=== PATIENT | male | born 1955 | race Caucasian/White ===

== ENCOUNTER 2017-08-02 06:34 | Day surgery (SDC) | payer MEDICARE, OTHER ==
[2017-08-02] MEDS ORDERED: Sodium Chloride 0.9% 10 ML Syringe FLUSH PRN (06:45)
[2017-08-02] MEDS: Lactated Ringers 1,000 ML IV SCH (07:40)
[2017-08-02] MEDS ORDERED: Propofol 200 MG/20 ML SDV IV ONE (08:00)
[2017-08-02] MEDS ORDERED: Midazolam 1 MG/ML 2 ML SDV IV ONE (08:00)
[2017-08-02] MEDS ORDERED: fentaNYL 100 MCG/2 ML SDV IV ONE (08:00)
--- NOTE | 2017-08-02 08:25 | PCM.OPNOTE ---
- General Post-Op/Procedure Note Date of Surgery/Procedure: 08/02/17 Operative Procedure(s): c scope Findings: normal exam Pre Op Diagnosis: hx of colon polyps Post-Op Diagnosis: normal exam Anesthesia Technique: MAC Primary Surgeon: Brody Bill Anesthesia Provider: Erasmo Samson Pathology: none Complications: None Condition: Good Free Text/Narrative:: see dictation
--- NOTE | 2017-08-02 11:21 | PROC ---
DATE OF PROCEDURE: 08/02/2017 PROCEDURE PERFORMED: Colonoscopy. PREOPERATIVE DIAGNOSIS: Personal history of colon polyps. POSTOPERATIVE DIAGNOSIS: Normal scope. INDICATIONS FOR PROCEDURE: This is a 61-year-old white male who presents for a followup colonoscopy. Last endoscopy revealed some colon polyps. He was offered and accepted same. DESCRIPTION OF OPERATION: After an excellent IV sedation was administered, digital rectal exam was performed. No marked abnormality was noted. Flexible colonoscope was inserted and advanced without difficulty to the cecum. The prep was excellent. The following findings were noted: Ascending colon, unremarkable. Transverse colon, unremarkable. Descending colon, unremarkable. Sigmoid and rectum unremarkable. Colon was deflated as the scope was removed. The patient tolerated the procedure well, and was taken to the recovery in good condition. Repeat scope in 10 years. /[id number] /MODL
== END 2017-08-02 09:18 | disposition home or self-care (01) ==
LOC: FB.SDS 06:34
PROVIDERS: ATTEND Surgery
DX: Z12.11 Encounter for screening for malignant neoplasm of colon (principal); I10 Essential (primary) hypertension; E11.42 Type 2 diabetes mellitus with diabetic polyneuropathy; E03.9 Hypothyroidism, unspecified; E78.2 Mixed hyperlipidemia; F17.220 Nicotine dependence, chewing tobacco, uncomplicated; Z86.010 Personal history of colon polyps; Z79.4 Long term (current) use of insulin; Z79.82 Long term (current) use of aspirin; Z79.899 Other long term (current) drug therapy
CPT/HCPCS: 00812-QZ; 82962; J2250; J2704; J3010; J7120

== ENCOUNTER 2019-09-09 19:57 | Emergency (ER) | payer MEDICARE, OTHER ==
[2019-09-09] MEDS ORDERED: Diphtheria,Pertussis(Acell),Tetanus Vaccine 0.5 ML SDV IM ONE (20:09)
[2019-09-09] MEDS ORDERED: cefTRIAXone 1 GM Vial IM ONE (20:12)
--- NOTE | 2019-09-09 20:18 | EDM.PDOC ---
ED HPI GENERAL MEDICAL PROBLEM - General Chief Complaint: Skin Complaint Stated Complaint: FISH HOOK IN HAND Time Seen by Provider: 09/09/19 20:00 Source of Information: Reports: Patient History Limitations: Reports: No Limitations - History of Present Illness INITIAL COMMENTS - FREE TEXT/NARRATIVE: Got fish hook in the right 5th finger this am Was able to remove it though it was in deep this pm noted swelling , pain and bruising in the are of the injury no fever or chills noted Onset: Today Onset Date: 09/09/19 Duration: Hour(s): (10), Getting Worse Location: Reports: Upper Extremity, Right Quality: Reports: Ache, Dull Severity: Mild Improves with: Reports: None Associated Symptoms: Reports: No Other Symptoms - Related Data Allergies Allergy/AdvReac Type Severity Reaction Status Date / Time No Known Allergies Allergy Verified 08/02/17 07:26 Home Meds: Home Meds Aspirin [Asperdrink] 81 mg PO DAILY 04/13/13 [History] Lisinopril [Zestril] 10 mg PO BEDTIME 04/13/13 [History] lisinopriL [Prinivil] 20 mg PO DAILY 04/13/13 [History] Insulin Aspart [Novolog Flexpen] 7 unit SQ TID 07/30/17 [History] Insulin Glarg,Human.Rec.Analog [Lantus Solostar] 20 unit SUBCUT DAILY 07/30/17 [ History] Levothyroxine 150 mcg PO DAILY 07/30/17 [History] Simvastatin [Zocor] 40 mg PO BEDTIME 07/30/17 [History] Sulfamethoxazole/Trimethoprim [Bactrim Ds Tablet] 1 each PO BID #20 tablet 09/08 [Rx] Past Medical History HEENT History: Reports: Cataract Cardiovascular History: Reports: High Cholesterol, Hypertension Respiratory History: Reports: None Gastrointestinal History: Reports: Colon Polyp Genitourinary History: Reports: None [employer] History: Reports: None Musculoskeletal History: Reports: None Neurological History: Reports: Neuropathy, Diabetic Psychiatric History: Reports: None Endocrine/Metabolic History: Reports: Diabetes, Type I, Hypothyroidism Hematologic History: Reports: None Immunologic History: Reports: None Oncologic (Cancer) History: Reports: None Dermatologic History: Reports: Other (See Below) Other Dermatologic History: ACTINIC KERATOSIS - Past Surgical History GI Surgical History: Reports: Colonoscopy Social & Family History - Caffeine Use Caffeine Use: Reports: Coffee ED ROS GENERAL - Review of Systems Review Of Systems: Comprehensive ROS is negative, except as noted in HPI. ED EXAM, SKIN/RASH Exam: See Below Exam Limited By: No Limitations General Appearance: Alert, WD/WN, No Apparent Distress Eye Exam: Bilateral Eye: EOMI, PERRL Ears: Normal External Exam Nose: Normal Inspection Throat/Mouth: Normal Inspection Neck: Supple, Non-Tender Extremities: Increased Warmth, Mottled, Redness, Other (in the right 5th distal finger) Neurological: Alert, Oriented Skin: Other (puncture wound in the right 5th finger) Location, Skin: Upper Extremity, Right Associated features: Warmth, Tenderness, Swelling, Induration, Inflammation Lymphatic: No Adenopathy Course - Vital Signs Last Recorded V/S: Last Vital Signs Temp 36.4 C 09/09/19 21:00 Pulse 75 09/09/19 21:00 Resp 18 09/09/19 21:00 BP 120/61 09/09/19 21:00 Pulse Ox 97 09/09/19 21:00 - Orders/Labs/Meds Orders: Active Orders 24 hr Category Date Time Status Vaccines to be Administered [RC] PER UNIT ROUTINE Care 09/09/19 20:10 Active Meds: Medications Discontinued Medications Generic Name Dose Route Start Last Admin Trade Name Oliva PRN Reason Stop Dose Admin Ceftriaxone Sodium 1 gm 09/09/19 20:12 09/09/19 20:56 Rocephin IM 09/09/19 20:13 1 gm ONETIME ONE Administration Diphtheria/Tetanus/Acell Pertussis 0.5 ml 09/09/19 20:09 09/09/19 20:49 Adacel IM 09/09/19 20:10 0.5 ml .ONCE ONE Administration - Re-Assessments/Exams Free Text/Narrative Re-Assessment/Exam: 09/09/19 20:19 pt given both tetanus and rocephin Departure - Departure Time of Disposition: 22:10 Disposition: Home, Self-Care 01 Clinical Impression: Foreign body of finger of right hand, superficial, infected, Cellulitis of finger of right hand, Cellulitis - Discharge Information *PRESCRIPTION DRUG MONITORING PROGRAM REVIEWED*: Not Applicable *COPY OF PRESCRIPTION DRUG MONITORING REPORT IN PATIENT PERCY: Not Applicable Prescriptions: Sulfamethoxazole/Trimethoprim [Bactrim Ds Tablet] 1 each PO BID #20 tablet Instructions: Cellulitis, Adult, [id number] Referrals: Curt Baron MD [Primary Care Provider] - Forms: ED Department Discharge Additional Instructions: 1) Soak hand in epsom salt once daily till no longer has pain 2) keep wound open : NO BANDAID 3) Monitor for any signs of infection ( redness , swelling pain , pus discharge ) and return for evaluation immediately or see your doctor 4) Call with any concerns Sepsis Event Note - Focused Exam Vital Signs: Vital Signs Temp Pulse Resp BP Pulse Ox 09/09/19 21:00 36.4 C 75 18 120/61 97 09/09/19 20:00 36.4 C 88 18 157/59 H 98 Date Exam was Performed: 09/10/19 Time Exam was Performed: 01:50 - My Orders Last 24 Hours: My Active Orders 09/09/19 20:10 Vaccines to be Administered [RC] PER UNIT ROUTINE - Assessment/Plan Last 24 Hours: My Active Orders 09/09/19 20:10 Vaccines to be Administered [RC] PER UNIT ROUTINE
== END 2019-09-09 21:20 | disposition home or self-care (01) ==
LOC: FB.ED 19:57
DX: S61.246A Puncture wound with foreign body of right little finger without damage to nail, initial encounter (principal); L03.011 Cellulitis of right finger; E78.00 Pure hypercholesterolemia, unspecified; I10 Essential (primary) hypertension; E03.9 Hypothyroidism, unspecified; E10.40 Type 1 diabetes mellitus with diabetic neuropathy, unspecified; Z79.82 Long term (current) use of aspirin; Z79.4 Long term (current) use of insulin; Z23 Encounter for immunization; Z79.899 Other long term (current) drug therapy; W45.8XXA Other foreign body or object entering through skin, initial encounter
CPT/HCPCS: 90471; 90715; 96372; 99283; J0696

== ENCOUNTER 2022-08-31 11:59 | Emergency (ER) | payer MEDICARE, OTHER ==
[2022-08-31] MEDS ORDERED: Ondansetron 4 MG/2 ML SDV IVPUSH ONE (12:15)
[2022-08-31] MEDS ORDERED: Sodium Chloride 0.9% 10 ML Syringe FLUSH PRN (12:15)
[2022-08-31] MEDS ORDERED: Sodium Chloride 0.9% 1,000 ML IV ONE ×2 (12:15→14:12)
[2022-08-31 12:47] LABS: BASOPHILS PERCENT AUTO 0.2 % (0.3-3.8); BLOOD UREA NITROGEN,BUN 28 mg/dL (7-18); CALCIUM 9.2 mg/dL (8.6-10.2); CARBON DIOXIDE,CO2 25 mmol/L (21-32); CHLORIDE,CL 98 mmol/L (100-110); CREATININE 1.4 mg/dL (0.70-1.30); EST CRCL DRUG DOSING (CG) 56.97 mL/min; ESTIMATED GFR 55 mL/min (>60); GLUCOSE RANDOM 218 mg/dL (80-116); HEMOGLOBIN 11.3 g/dL (12.9-17.7); LYMPHOCYTES ABSOLUTE AUTO 0.5 x10-3/uL (0.5-4.5); LYMPHOCYTES PERCENT AUTO 3.5 % (15.8-45.3); MEAN CORPUSCULAR HEMOGLOBIN 30.4 pg (27.0-33.3); MEAN CORPUSCULAR HGB CONC 33.2 g/dL (28.7-35.3); MEAN CORPUSCULAR VOLUME 91.4 fL (80.8-98.7); MEAN PLATELET VOLUME 8.5 fL (6.7-11.0); MONOCYTES ABSOLUTE AUTO 0.7 x10-3/uL (0.0-1.2); MONOCYTES PERCENT AUTO 5.1 % (5.5-15.2); NEUTROPHILS ABSOLUTE AUTO 12.9 x10-3/uL (1.7-6.9); NEUTROPHILS PERCENT AUTO 91.2 % (40.3-71.8); PLATELET COUNT,PLT 232 x10(3)uL (117-477); POTASSIUM,K 4.4 mmol/L (3.5-5.3); RED BLOOD CELL COUNT 3.73 x10(6)uL (3.90-5.90); RED CELL DISTRIBUTION WIDTH 13.2 % (12.4-15.0); SODIUM,NA 134 mmol/L (135-145); WHITE BLOOD CELL COUNT,WBC 14.1 x10-3/uL (3.2-10.1)
[2022-08-31 12:56] LABS: BASE EXCESS VENOUS,POC -2 mmol/L (-2 - 3+); PCO2 VENOUS,POC 34 mmHg (41-51); PH VENOUS,POC 7.42 pH Units (7.32-7.43)
[2022-08-31 12:58] LABS: A/G RATIO 0.7; ALANINE AMINOTRANSFERASE,ALT 41 U/L (12-36); ALBUMIN 2.8 g/dL (3.2-4.6); ALKALINE PHOSPHATASE 96 IU/L (56-112); MAGNESIUM 1.6 mg/dL (1.8-2.5)
[2022-08-31] MEDS ORDERED: Piperacillin/Tazobactam 3.375 GM in Sodium Chloride 0.9% 50 ML IV SCH (13:00)
[2022-08-31 13:02] LABS: ASPARTATE AMNIOTRANSFERASE,AST 212 IU/L (5-25)
[2022-08-31 13:21] LABS: INFLUENZA A NAA NEGATIVE (NEGATIVE); INFLUENZA B NAA NEGATIVE (NEGATIVE)
[2022-08-31 13:21] LABS: BILIRUBIN,URINE SMALL (NEGATIVE); GLUCOSE,URINE >1000 mg/dL (NORMAL); KETONES,URINE 15 mg/dL (NEGATIVE); LEUKOCYTE ESTERASE,URINE NEGATIVE (NEGATIVE); NITRITE,URINE NEGATIVE (NEGATIVE); OCCULT BLOOD,URINE MODERATE (NEGATIVE); PROTEIN,URINE TRACE mg/dL (NEGATIVE); UROBILINOGEN,URINE NORMAL (NEGATIVE)
[2022-08-31 13:22] LABS: CORONAVIRUS COVID-19 NAA NEGATIVE (NEGATIVE)
[2022-08-31 13:27] LABS: APPEARANCE,URINE SLIGHTLY CLOUDY (CLEAR); COLOR,URINE YELLOW (YELLOW); RBC,URINE 0-5 (0-5); SQUAMOUS EPITHELIAL CELLS,UR RARE (NS,R,O); WBC,URINE 0-5 (0-5)
[2022-08-31 13:28] LABS: AMORPHOUS SEDIMENT,URINE MANY; BACTERIA,URINE MODERATE (NS)
[2022-08-31] MEDS ORDERED: VANCOmycin 1.75 GM/350 ML 350 ML IV ONE (13:30)
[2022-08-31] MEDS ORDERED: Sodium Chloride 0.9% 1,000 ML IV SCH (14:15)
== END 2022-08-31 15:50 ==
LOC: FB.ED 11:59
DX: L03.116 Cellulitis of left lower limb (principal); R65.10 Systemic inflammatory response syndrome (SIRS) of non-infectious origin without acute organ dysfunction; L04.3 Acute lymphadenitis of lower limb; E10.621 Type 1 diabetes mellitus with foot ulcer; L97.521 Non-pressure chronic ulcer of other part of left foot limited to breakdown of skin; E78.00 Pure hypercholesterolemia, unspecified; I10 Essential (primary) hypertension; E03.9 Hypothyroidism, unspecified; Z79.82 Long term (current) use of aspirin; Z79.4 Long term (current) use of insulin; Z79.899 Other long term (current) drug therapy; Z87.891 Personal history of nicotine dependence; Z20.822 Contact with and (suspected) exposure to COVID-19
CPT/HCPCS: 0240U; 36415; 73590; 73630; 80053; 81001; 82947; 83605; 83735; 85025; 86140; 87040; 87077; 93005; 96361; 96365; 96366; 96367; 96375; 99285; J2405; J2543; J3370; J3490; J7030; 87186

== ENCOUNTER 2022-09-08 08:17 | Inpatient (IN) | payer MEDICARE, OTHER ==
[2022-09-11] MEDS ORDERED: oxyCODONE 5 MG Tab PO PRN (12:47)
[2022-09-11] MEDS ORDERED: Glucagon,Human Recombinant 1 MG Vial IM PRN (12:47)
[2022-09-11] MEDS ORDERED: Sennosides/Docusate Sodium 50-8.6 MG Tab PO PRN (12:47)
[2022-09-11] MEDS ORDERED: Scopolamine 1.5 MG Transdermal Patch TOP PRN (12:47)
[2022-09-11] MEDS ORDERED: Ondansetron 4 MG Tab.DIS PO PRN (12:47)
[2022-09-11] MEDS ORDERED: 50% Dextrose in Water 50 ML Syringe IVPUSH PRN (12:47)
[2022-09-11] MEDS ORDERED: ceFAZolin 2 GM Vial IVPUSH SCH (13:00)
[2022-09-11] MEDS ORDERED: Insulin Lispro 100 Unit/ML 3 ML KwikPen SUBCUT ONE (13:11)
[2022-09-11] MEDS: Insulin Lispro 100 Unit/ML 3 ML KwikPen SUBCUT SCH ×2 (13:19→17:58)
[2022-09-11] MEDS: ceFAZolin 2 GM Vial IVPUSH SCH ×2 (13:23→21:58)
[2022-09-11] MEDS: Furosemide 40 MG Tab PO SCH (14:48)
[2022-09-11] MEDS ORDERED: Insulin Glargine,Human Rec. Analog 100 Units/ML 3 ML Pen SUBCUT ONE (21:56)
[2022-09-11] MEDS: Insulin Glargine,Human Rec. Analog 100 Units/ML 3 ML Pen SUBCUT SCH (21:57)
[2022-09-11] MEDS: Simvastatin 40 MG Tab PO SCH (21:58)
[2022-09-11] MEDS: Sodium Chloride 0.9% 10 ML Syringe FLUSH PRN ×2 (21:59→22:06)
[2022-09-12] MEDS: ceFAZolin 2 GM Vial IVPUSH SCH ×3 (05:12→21:17)
[2022-09-12] MEDS: Sodium Chloride 0.9% 10 ML Syringe FLUSH PRN ×3 (05:13→21:18)
[2022-09-12] MEDS: Levothyroxine 150 MCG Tab PO SCH (05:17)
[2022-09-12] MEDS: Furosemide 40 MG Tab PO SCH ×2 (08:13→15:47)
[2022-09-12] MEDS: Ferrous Sulfate 325 MG Tab PO SCH (08:13)
[2022-09-12] MEDS: Saccharomyces Boulardii (Probiotic) 250 MG Cap PO SCH (08:13)
[2022-09-12] MEDS: Clopidogrel 75 MG Tab PO SCH (08:14)
[2022-09-12] MEDS: amLODIPine 5 MG Tab PO SCH (08:14)
[2022-09-12] MEDS: Aspirin 81 MG Tab.EC PO SCH (08:14)
[2022-09-12] MEDS: Insulin Lispro 100 Unit/ML 3 ML KwikPen SUBCUT SCH ×3 (08:15→17:26)
[2022-09-12] MEDS: Insulin Glargine,Human Rec. Analog 100 Units/ML 3 ML Pen SUBCUT SCH (21:17)
[2022-09-12] MEDS: Simvastatin 40 MG Tab PO SCH (21:18)
[2022-09-13] MEDS: Levothyroxine 150 MCG Tab PO SCH (05:56)
[2022-09-13] MEDS: ceFAZolin 2 GM Vial IVPUSH SCH ×3 (05:56→20:48)
[2022-09-13] MEDS: Sodium Chloride 0.9% 10 ML Syringe FLUSH PRN ×4 (05:57→21:16)
[2022-09-13] MEDS: Insulin Lispro 100 Unit/ML 3 ML KwikPen SUBCUT SCH ×3 (07:49→17:25)
[2022-09-13] MEDS: Furosemide 40 MG Tab PO SCH ×2 (07:49→13:15)
[2022-09-13] MEDS: Clopidogrel 75 MG Tab PO SCH (08:00)
[2022-09-13] MEDS: Aspirin 81 MG Tab.EC PO SCH (08:00)
[2022-09-13] MEDS: Saccharomyces Boulardii (Probiotic) 250 MG Cap PO SCH (08:00)
[2022-09-13] MEDS: amLODIPine 5 MG Tab PO SCH (10:04)
[2022-09-13] MEDS: Hydrochlorothiazide/Lisinopril 12.5-10 MG Tab PO SCH (10:40)
[2022-09-13] MEDS ORDERED: Prochlorperazine 10 MG/2 ML SDV IVPUSH ONE (14:11)
[2022-09-13 14:32] LABS: BASOPHILS ABSOLUTE AUTO 0.1 x10-3/uL (0.0-0.3); BASOPHILS PERCENT AUTO 0.6 % (0.3-3.8); EOSINOPHILS ABSOLUTE AUTO 0.1 x10-3/uL (0.0-0.6); HEMATOCRIT 31.9 % (38.3-50.1); HEMOGLOBIN 10.5 g/dL (12.9-17.7); LYMPHOCYTES ABSOLUTE AUTO 1.5 x10-3/uL (0.5-4.5); MEAN CORPUSCULAR HEMOGLOBIN 30.6 pg (27.0-33.3); MEAN CORPUSCULAR HGB CONC 32.9 g/dL (28.7-35.3); MEAN PLATELET VOLUME 7.5 fL (6.7-11.0); MONOCYTES ABSOLUTE AUTO 0.6 x10-3/uL (0.0-1.2); MONOCYTES PERCENT AUTO 6.2 % (5.5-15.2); NEUTROPHILS ABSOLUTE AUTO 7.1 x10-3/uL (1.7-6.9); NEUTROPHILS PERCENT AUTO 76.2 % (40.3-71.8); PLATELET COUNT,PLT 377 x10(3)uL (117-477); RED BLOOD CELL COUNT 3.43 x10(6)uL (3.90-5.90); RED CELL DISTRIBUTION WIDTH 15.8 % (12.4-15.0); WHITE BLOOD CELL COUNT,WBC 9.3 x10-3/uL (3.2-10.1)
[2022-09-13 14:41] LABS: A/G RATIO 0.6; ALANINE AMINOTRANSFERASE,ALT 16 U/L (12-36); ALBUMIN 2.3 g/dL (3.2-4.6); ALKALINE PHOSPHATASE 92 IU/L (56-112); ASPARTATE AMNIOTRANSFERASE,AST 25 IU/L (5-25); BILIRUBIN TOTAL 0.5 mg/dL (0.1-1.3); BLOOD UREA NITROGEN,BUN 10 mg/dL (7-18); BUN/CREATININE RATIO 7.7 (9-20); CALCIUM 8.5 mg/dL (8.6-10.2); CARBON DIOXIDE,CO2 31 mmol/L (21-32); CHLORIDE,CL 103 mmol/L (100-110); CREATININE 1.3 mg/dL (0.70-1.30); EST CRCL DRUG DOSING (CG) 59.53 mL/min; ESTIMATED GFR 61 mL/min (>60); GLUCOSE RANDOM 210 mg/dL (80-116); POTASSIUM,K 3.4 mmol/L (3.5-5.3); PROTEIN TOTAL,TP 6.1 g/dL (6.0-8.0); SODIUM,NA 141 mmol/L (135-145)
[2022-09-13] MEDS ORDERED: Prochlorperazine 10 MG/2 ML SDV IVPUSH PRN (14:57)
[2022-09-13] MEDS ORDERED: Insulin Lispro 100 Unit/ML 3 ML KwikPen SUBCUT SCH (17:00)
[2022-09-13] MEDS ORDERED: Pantoprazole 40 MG Vial IVPUSH ONE (18:31)
[2022-09-13] MEDS: Insulin Glargine,Human Rec. Analog 100 Units/ML 3 ML Pen SUBCUT SCH (20:47)
[2022-09-13] MEDS: Simvastatin 40 MG Tab PO SCH (20:48)
[2022-09-14] MEDS: Pantoprazole 40 MG Tab.CR PO SCH (05:54)
[2022-09-14] MEDS: ceFAZolin 2 GM Vial IVPUSH SCH ×3 (05:54→21:00)
[2022-09-14] MEDS: Levothyroxine 150 MCG Tab PO SCH (05:54)
[2022-09-14] MEDS: Sodium Chloride 0.9% 10 ML Syringe FLUSH PRN ×4 (05:55→21:09)
[2022-09-14] MEDS: Scopolamine 1.5 MG Transdermal Patch TOP SCH (09:50)
[2022-09-14] MEDS: Insulin Lispro 100 Unit/ML 3 ML KwikPen SUBCUT SCH ×3 (09:54→17:30)
[2022-09-14] MEDS: Furosemide 40 MG Tab PO SCH ×2 (09:55→13:41)
[2022-09-14] MEDS: Ferrous Sulfate 325 MG Tab PO SCH (09:55)
[2022-09-14] MEDS: amLODIPine 5 MG Tab PO SCH (09:56)
[2022-09-14] MEDS: Saccharomyces Boulardii (Probiotic) 250 MG Cap PO SCH (09:56)
[2022-09-14] MEDS: Aspirin 81 MG Tab.EC PO SCH (09:56)
[2022-09-14] MEDS: Hydrochlorothiazide/Lisinopril 12.5-10 MG Tab PO SCH (09:58)
[2022-09-14] MEDS: Clopidogrel 75 MG Tab PO SCH (09:59)
[2022-09-14] MEDS: Insulin Glargine,Human Rec. Analog 100 Units/ML 3 ML Pen SUBCUT SCH (20:54)
[2022-09-14] MEDS: Simvastatin 40 MG Tab PO SCH (21:13)
[2022-09-15] MEDS: Sodium Chloride 0.9% 10 ML Syringe FLUSH PRN ×7 (05:32→16:47)
[2022-09-15] MEDS: ceFAZolin 2 GM Vial IVPUSH SCH ×3 (05:33→21:22)
[2022-09-15] MEDS: Levothyroxine 150 MCG Tab PO SCH (05:43)
[2022-09-15] MEDS: Pantoprazole 40 MG Tab.CR PO SCH (05:43)
[2022-09-15 06:49] LABS: BLOOD UREA NITROGEN,BUN 12 mg/dL (7-18); BUN/CREATININE RATIO 10.9 (9-20); CALCIUM 8.5 mg/dL (8.6-10.2); CARBON DIOXIDE,CO2 33 mmol/L (21-32); CHLORIDE,CL 104 mmol/L (100-110); CREATININE 1.1 mg/dL (0.70-1.30); EST CRCL DRUG DOSING (CG) 70.36 mL/min; ESTIMATED GFR 74 mL/min (>60); GLUCOSE RANDOM 96 mg/dL (80-116); SODIUM,NA 143 mmol/L (135-145)
[2022-09-15] MEDS: Insulin Lispro 100 Unit/ML 3 ML KwikPen SUBCUT SCH ×3 (08:20→17:56)
[2022-09-15] MEDS: Clopidogrel 75 MG Tab PO SCH (08:30)
[2022-09-15] MEDS: amLODIPine 5 MG Tab PO SCH (08:30)
[2022-09-15] MEDS: Aspirin 81 MG Tab.EC PO SCH (08:31)
[2022-09-15] MEDS: Furosemide 40 MG Tab PO SCH (08:31)
[2022-09-15] MEDS: Saccharomyces Boulardii (Probiotic) 250 MG Cap PO SCH (08:35)
[2022-09-15] MEDS ORDERED: Potassium Chloride 20 MEQ Tab.ER PO ONE ×2 (10:12→16:00)
[2022-09-15] MEDS: Hydrochlorothiazide/Lisinopril 12.5-10 MG Tab PO SCH (10:20)
[2022-09-15] MEDS ORDERED: Magnesium Sulfate/Water 2 GM in Premix Bag 1 BAG IV ONE (10:22)
[2022-09-15 13:50] LABS: BASOPHILS ABSOLUTE AUTO 0.1 x10-3/uL (0.0-0.3); BASOPHILS PERCENT AUTO 0.8 % (0.3-3.8); EOSINOPHILS ABSOLUTE AUTO 0.2 x10-3/uL (0.0-0.6); EOSINOPHILS PERCENT AUTO 2.3 % (0.1-6.8); HEMATOCRIT 31.8 % (38.3-50.1); HEMOGLOBIN 10.5 g/dL (12.9-17.7); LYMPHOCYTES ABSOLUTE AUTO 1.5 x10-3/uL (0.5-4.5); MEAN PLATELET VOLUME 8.3 fL (6.7-11.0); MONOCYTES ABSOLUTE AUTO 0.8 x10-3/uL (0.0-1.2); MONOCYTES PERCENT AUTO 9.3 % (5.5-15.2); NEUTROPHILS ABSOLUTE AUTO 5.5 x10-3/uL (1.7-6.9); NEUTROPHILS PERCENT AUTO 68.6 % (40.3-71.8); PLATELET COUNT,PLT 341 x10(3)uL (117-477); RED BLOOD CELL COUNT 3.39 x10(6)uL (3.90-5.90); RED CELL DISTRIBUTION WIDTH 17.4 % (12.4-15.0); WHITE BLOOD CELL COUNT,WBC 8.1 x10-3/uL (3.2-10.1)
[2022-09-15 13:57] LABS: ASPARTATE AMNIOTRANSFERASE,AST 20 IU/L (5-25)
[2022-09-15 14:15] LABS: SEDIMENTATION RATE MANUAL 15 mm/hr (0-15)
[2022-09-15] MEDS: Simvastatin 40 MG Tab PO SCH (21:23)
[2022-09-15] MEDS: Insulin Glargine,Human Rec. Analog 100 Units/ML 3 ML Pen SUBCUT SCH (21:31)
[2022-09-16] MEDS: ceFAZolin 2 GM Vial IVPUSH SCH ×3 (05:44→21:20)
[2022-09-16 05:48] LABS: BASOPHILS ABSOLUTE AUTO 0.1 x10-3/uL (0.0-0.3); BASOPHILS PERCENT AUTO 0.7 % (0.3-3.8); EOSINOPHILS ABSOLUTE AUTO 0.2 x10-3/uL (0.0-0.6); EOSINOPHILS PERCENT AUTO 2.9 % (0.1-6.8); HEMATOCRIT 31.1 % (38.3-50.1); HEMOGLOBIN 10.3 g/dL (12.9-17.7); LYMPHOCYTES ABSOLUTE AUTO 1.5 x10-3/uL (0.5-4.5); LYMPHOCYTES PERCENT AUTO 22.6 % (15.8-45.3); MEAN CORPUSCULAR HEMOGLOBIN 30.9 pg (27.0-33.3); MEAN CORPUSCULAR HGB CONC 33.1 g/dL (28.7-35.3); MEAN CORPUSCULAR VOLUME 93.2 fL (80.8-98.7); MONOCYTES ABSOLUTE AUTO 0.7 x10-3/uL (0.0-1.2); MONOCYTES PERCENT AUTO 10.3 % (5.5-15.2); NEUTROPHILS ABSOLUTE AUTO 4.3 x10-3/uL (1.7-6.9); NEUTROPHILS PERCENT AUTO 63.5 % (40.3-71.8); PLATELET COUNT,PLT 324 x10(3)uL (117-477); RED BLOOD CELL COUNT 3.34 x10(6)uL (3.90-5.90); RED CELL DISTRIBUTION WIDTH 17.5 % (12.4-15.0); WHITE BLOOD CELL COUNT,WBC 6.8 x10-3/uL (3.2-10.1)
[2022-09-16] MEDS: Levothyroxine 150 MCG Tab PO SCH (05:49)
[2022-09-16] MEDS: Pantoprazole 40 MG Tab.CR PO SCH (05:49)
[2022-09-16 05:57] LABS: A/G RATIO 0.6; ALANINE AMINOTRANSFERASE,ALT 6 U/L (12-36); ALBUMIN 2.1 g/dL (3.2-4.6); ALKALINE PHOSPHATASE 76 IU/L (56-112); ASPARTATE AMNIOTRANSFERASE,AST 19 IU/L (5-25); BILIRUBIN TOTAL 0.5 mg/dL (0.1-1.3); BLOOD UREA NITROGEN,BUN 19 mg/dL (7-18); CALCIUM 8.3 mg/dL (8.6-10.2); CARBON DIOXIDE,CO2 35 mmol/L (21-32); CHLORIDE,CL 103 mmol/L (100-110); EST CRCL DRUG DOSING (CG) 77.39 mL/min; ESTIMATED GFR 83 mL/min (>60); GLUCOSE RANDOM 187 mg/dL (80-116); POTASSIUM,K 3.8 mmol/L (3.5-5.3); PROTEIN TOTAL,TP 5.7 g/dL (6.0-8.0); SODIUM,NA 143 mmol/L (135-145)
[2022-09-16] MEDS: Insulin Lispro 100 Unit/ML 3 ML KwikPen SUBCUT SCH ×3 (07:34→17:09)
[2022-09-16] MEDS: Aspirin 81 MG Tab.EC PO SCH (08:45)
[2022-09-16] MEDS: amLODIPine 5 MG Tab PO SCH (08:45)
[2022-09-16] MEDS: Furosemide 40 MG Tab PO SCH (08:45)
[2022-09-16] MEDS: Hydrochlorothiazide/Lisinopril 12.5-10 MG Tab PO SCH (08:45)
[2022-09-16] MEDS: Ferrous Sulfate 325 MG Tab PO SCH (08:45)
[2022-09-16] MEDS: Saccharomyces Boulardii (Probiotic) 250 MG Cap PO SCH (08:45)
[2022-09-16] MEDS: Clopidogrel 75 MG Tab PO SCH (08:46)
[2022-09-16] MEDS: Sodium Chloride 0.9% 10 ML Syringe FLUSH PRN ×3 (12:03→21:29)
[2022-09-16] MEDS: Simvastatin 40 MG Tab PO SCH (21:22)
[2022-09-16] MEDS: Insulin Glargine,Human Rec. Analog 100 Units/ML 3 ML Pen SUBCUT SCH (21:22)
[2022-09-17] MEDS: Pantoprazole 40 MG Tab.CR PO SCH (05:37)
[2022-09-17] MEDS: Sodium Chloride 0.9% 10 ML Syringe FLUSH PRN ×4 (05:37→20:54)
[2022-09-17] MEDS: Levothyroxine 150 MCG Tab PO SCH (05:37)
[2022-09-17] MEDS: ceFAZolin 2 GM Vial IVPUSH SCH ×3 (05:41→20:45)
[2022-09-17] MEDS: Insulin Lispro 100 Unit/ML 3 ML KwikPen SUBCUT SCH ×3 (07:42→17:41)
[2022-09-17] MEDS: Furosemide 40 MG Tab PO SCH (09:32)
[2022-09-17] MEDS: Saccharomyces Boulardii (Probiotic) 250 MG Cap PO SCH (09:35)
[2022-09-17] MEDS: Aspirin 81 MG Tab.EC PO SCH (09:35)
[2022-09-17] MEDS: Hydrochlorothiazide/Lisinopril 12.5-10 MG Tab PO SCH (09:35)
[2022-09-17] MEDS: amLODIPine 5 MG Tab PO SCH (09:36)
[2022-09-17] MEDS: Remove Patch *SCOPOLAMINE TRDERM SCH (09:36)
[2022-09-17] MEDS: Clopidogrel 75 MG Tab PO SCH (09:36)
[2022-09-17] MEDS: Scopolamine 1.5 MG Transdermal Patch TOP SCH (09:37)
[2022-09-17] MEDS ORDERED: Furosemide 20 MG Tab PO PRN (17:02)
[2022-09-17] MEDS: Simvastatin 40 MG Tab PO SCH (20:36)
[2022-09-17] MEDS: Insulin Glargine,Human Rec. Analog 100 Units/ML 3 ML Pen SUBCUT SCH (20:37)
[2022-09-18] MEDS: ceFAZolin 2 GM Vial IVPUSH SCH ×3 (05:35→20:39)
[2022-09-18] MEDS: Sodium Chloride 0.9% 10 ML Syringe FLUSH PRN ×3 (05:40→20:47)
[2022-09-18] MEDS: Levothyroxine 150 MCG Tab PO SCH (05:41)
[2022-09-18] MEDS: Pantoprazole 40 MG Tab.CR PO SCH (05:41)
[2022-09-18] MEDS: Insulin Lispro 100 Unit/ML 3 ML KwikPen SUBCUT SCH ×3 (07:59→17:19)
[2022-09-18] MEDS: Ferrous Sulfate 325 MG Tab PO SCH (08:04)
[2022-09-18] MEDS: Saccharomyces Boulardii (Probiotic) 250 MG Cap PO SCH (08:05)
[2022-09-18] MEDS: Clopidogrel 75 MG Tab PO SCH (08:06)
[2022-09-18] MEDS: Aspirin 81 MG Tab.EC PO SCH (08:06)
[2022-09-18] MEDS: amLODIPine 5 MG Tab PO SCH (08:08)
[2022-09-18] MEDS: Hydrochlorothiazide/Lisinopril 12.5-10 MG Tab PO SCH (08:08)
[2022-09-18] MEDS: Simvastatin 40 MG Tab PO SCH (20:32)
[2022-09-18] MEDS: Insulin Glargine,Human Rec. Analog 100 Units/ML 3 ML Pen SUBCUT SCH (20:34)
[2022-09-19] MEDS: Sodium Chloride 0.9% 10 ML Syringe FLUSH PRN ×4 (05:13→21:45)
[2022-09-19] MEDS: ceFAZolin 2 GM Vial IVPUSH SCH ×3 (05:14→21:40)
[2022-09-19] MEDS: Levothyroxine 150 MCG Tab PO SCH (05:24)
[2022-09-19] MEDS: Pantoprazole 40 MG Tab.CR PO SCH (05:24)
[2022-09-19] MEDS: Insulin Lispro 100 Unit/ML 3 ML KwikPen SUBCUT SCH ×3 (07:31→17:34)
[2022-09-19] MEDS: Aspirin 81 MG Tab.EC PO SCH (08:06)
[2022-09-19] MEDS: Hydrochlorothiazide/Lisinopril 12.5-10 MG Tab PO SCH (08:06)
[2022-09-19] MEDS: Saccharomyces Boulardii (Probiotic) 250 MG Cap PO SCH (08:06)
[2022-09-19] MEDS: amLODIPine 5 MG Tab PO SCH (08:07)
[2022-09-19] MEDS: Clopidogrel 75 MG Tab PO SCH (08:08)
[2022-09-19] MEDS ORDERED: Insulin Lispro 100 Unit/ML 3 ML KwikPen SUBCUT STA ×2 (20:57→22:07)
[2022-09-19] MEDS: Insulin Glargine,Human Rec. Analog 100 Units/ML 3 ML Pen SUBCUT SCH (21:06)
[2022-09-19] MEDS: Simvastatin 40 MG Tab PO SCH (21:13)
[2022-09-19 22:03] LABS: BLOOD UREA NITROGEN,BUN 33 mg/dL (7-18); BUN/CREATININE RATIO 27.5 (9-20); CALCIUM 8.7 mg/dL (8.6-10.2); CARBON DIOXIDE,CO2 29 mmol/L (21-32); CHLORIDE,CL 99 mmol/L (100-110); CREATININE 1.2 mg/dL (0.70-1.30); EST CRCL DRUG DOSING (CG) 64.49 mL/min; ESTIMATED GFR 67 mL/min (>60); POTASSIUM,K 4.8 mmol/L (3.5-5.3); SODIUM,NA 134 mmol/L (135-145)
[2022-09-19 22:04] LABS: GLUCOSE RANDOM 540 mg/dL (80-116)
[2022-09-20] MEDS: Pantoprazole 40 MG Tab.CR PO SCH (05:46)
[2022-09-20] MEDS: Levothyroxine 150 MCG Tab PO SCH (05:46)
[2022-09-20] MEDS: ceFAZolin 2 GM Vial IVPUSH SCH ×3 (05:48→21:21)
[2022-09-20] MEDS: Sodium Chloride 0.9% 10 ML Syringe FLUSH PRN ×3 (05:56→21:29)
[2022-09-20] MEDS: Insulin Lispro 100 Unit/ML 3 ML KwikPen SUBCUT SCH ×3 (07:55→17:12)
[2022-09-20] MEDS: Ferrous Sulfate 325 MG Tab PO SCH (07:59)
[2022-09-20] MEDS: amLODIPine 5 MG Tab PO SCH (08:00)
[2022-09-20] MEDS: Hydrochlorothiazide/Lisinopril 12.5-10 MG Tab PO SCH (08:00)
[2022-09-20] MEDS: Clopidogrel 75 MG Tab PO SCH (08:00)
[2022-09-20] MEDS: Saccharomyces Boulardii (Probiotic) 250 MG Cap PO SCH (08:00)
[2022-09-20] MEDS: Aspirin 81 MG Tab.EC PO SCH (08:00)
[2022-09-20] MEDS: Scopolamine 1.5 MG Transdermal Patch TOP SCH (09:54)
[2022-09-20] MEDS: Remove Patch *SCOPOLAMINE TRDERM SCH (09:55)
[2022-09-20] MEDS: Simvastatin 40 MG Tab PO SCH (21:17)
[2022-09-20] MEDS: Insulin Glargine,Human Rec. Analog 100 Units/ML 3 ML Pen SUBCUT SCH (21:21)
[2022-09-21] MEDS: Sodium Chloride 0.9% 10 ML Syringe FLUSH PRN ×4 (05:43→16:50)
[2022-09-21] MEDS: Levothyroxine 150 MCG Tab PO SCH (05:44)
[2022-09-21] MEDS: Pantoprazole 40 MG Tab.CR PO SCH (05:44)
[2022-09-21] MEDS: ceFAZolin 2 GM Vial IVPUSH SCH ×3 (05:45→20:10)
[2022-09-21 06:07] LABS: BASOPHILS PERCENT AUTO 0.8 % (0.3-3.8); EOSINOPHILS ABSOLUTE AUTO 0.2 x10-3/uL (0.0-0.6); EOSINOPHILS PERCENT AUTO 3.9 % (0.1-6.8); HEMATOCRIT 36.3 % (38.3-50.1); HEMOGLOBIN 12.1 g/dL (12.9-17.7); LYMPHOCYTES ABSOLUTE AUTO 1.8 x10-3/uL (0.5-4.5); LYMPHOCYTES PERCENT AUTO 31.1 % (15.8-45.3); MEAN CORPUSCULAR HEMOGLOBIN 31.8 pg (27.0-33.3); MEAN CORPUSCULAR HGB CONC 33.3 g/dL (28.7-35.3); MEAN CORPUSCULAR VOLUME 95.4 fL (80.8-98.7); MEAN PLATELET VOLUME 8.5 fL (6.7-11.0); MONOCYTES ABSOLUTE AUTO 0.6 x10-3/uL (0.0-1.2); MONOCYTES PERCENT AUTO 11.4 % (5.5-15.2); NEUTROPHILS PERCENT AUTO 52.8 % (40.3-71.8); PLATELET COUNT,PLT 311 x10(3)uL (117-477); RED BLOOD CELL COUNT 3.81 x10(6)uL (3.90-5.90); RED CELL DISTRIBUTION WIDTH 19.9 % (12.4-15.0); WHITE BLOOD CELL COUNT,WBC 5.7 x10-3/uL (3.2-10.1)
[2022-09-21 06:14] LABS: EST CRCL DRUG DOSING (CG) 77.18 mL/min
[2022-09-21 06:26] LABS: SEDIMENTATION RATE MANUAL 25 mm/hr (0-15)
[2022-09-21] MEDS: Insulin Lispro 100 Unit/ML 3 ML KwikPen SUBCUT SCH ×5 (07:37→17:38)
[2022-09-21] MEDS: Saccharomyces Boulardii (Probiotic) 250 MG Cap PO SCH (08:53)
[2022-09-21] MEDS: Hydrochlorothiazide/Lisinopril 12.5-10 MG Tab PO SCH (08:54)
[2022-09-21] MEDS: Aspirin 81 MG Tab.EC PO SCH (08:54)
[2022-09-21] MEDS: Clopidogrel 75 MG Tab PO SCH (08:56)
[2022-09-21] MEDS: amLODIPine 5 MG Tab PO SCH (08:56)
[2022-09-21] MEDS ORDERED: 50% Dextrose in Water 50 ML Syringe IVPUSH PRN (10:06)
[2022-09-21] MEDS ORDERED: Glucagon,Human Recombinant 1 MG Vial IM PRN (10:06)
[2022-09-21] MEDS: Simvastatin 40 MG Tab PO SCH (20:07)
[2022-09-21] MEDS: Insulin Glargine,Human Rec. Analog 100 Units/ML 3 ML Pen SUBCUT SCH (20:46)
[2022-09-22] MEDS: ceFAZolin 2 GM Vial IVPUSH SCH ×3 (05:42→20:42)
[2022-09-22] MEDS: Levothyroxine 150 MCG Tab PO SCH (05:43)
[2022-09-22] MEDS: Pantoprazole 40 MG Tab.CR PO SCH (05:43)
[2022-09-22] MEDS: Insulin Lispro 100 Unit/ML 3 ML KwikPen SUBCUT SCH ×6 (07:47→17:25)
[2022-09-22] MEDS: Ferrous Sulfate 325 MG Tab PO SCH (07:59)
[2022-09-22] MEDS: Hydrochlorothiazide/Lisinopril 12.5-10 MG Tab PO SCH (08:00)
[2022-09-22] MEDS: Clopidogrel 75 MG Tab PO SCH (08:00)
[2022-09-22] MEDS: Saccharomyces Boulardii (Probiotic) 250 MG Cap PO SCH (08:00)
[2022-09-22] MEDS: Aspirin 81 MG Tab.EC PO SCH (08:00)
[2022-09-22] MEDS: amLODIPine 5 MG Tab PO SCH (08:00)
[2022-09-22] MEDS: Sodium Chloride 0.9% 10 ML Syringe FLUSH PRN ×5 (13:05→20:48)
[2022-09-22] MEDS ORDERED: Insulin Lispro 100 Unit/ML 3 ML KwikPen SUBCUT ONE (17:26)
[2022-09-22] MEDS: Insulin Glargine,Human Rec. Analog 100 Units/ML 3 ML Pen SUBCUT SCH (20:36)
[2022-09-22] MEDS: Simvastatin 40 MG Tab PO SCH (20:39)
[2022-09-23] MEDS: Pantoprazole 40 MG Tab.CR PO SCH (05:50)
[2022-09-23] MEDS: ceFAZolin 2 GM Vial IVPUSH SCH ×3 (05:53→21:06)
[2022-09-23] MEDS: Sodium Chloride 0.9% 10 ML Syringe FLUSH PRN ×3 (05:59→21:15)
[2022-09-23] MEDS: Insulin Lispro 100 Unit/ML 3 ML KwikPen SUBCUT SCH ×6 (07:45→17:29)
[2022-09-23] MEDS: Levothyroxine 150 MCG Tab PO SCH (08:19)
[2022-09-23] MEDS: Aspirin 81 MG Tab.EC PO SCH (08:19)
[2022-09-23] MEDS: Hydrochlorothiazide/Lisinopril 12.5-10 MG Tab PO SCH (08:20)
[2022-09-23] MEDS: Clopidogrel 75 MG Tab PO SCH (08:20)
[2022-09-23] MEDS: amLODIPine 5 MG Tab PO SCH (08:20)
[2022-09-23] MEDS: Saccharomyces Boulardii (Probiotic) 250 MG Cap PO SCH (08:20)
[2022-09-23] MEDS: Scopolamine 1.5 MG Transdermal Patch TOP SCH (09:00)
[2022-09-23] MEDS: Remove Patch *SCOPOLAMINE TRDERM SCH (09:00)
[2022-09-23] MEDS: Simvastatin 40 MG Tab PO SCH (20:59)
[2022-09-23] MEDS: Insulin Glargine,Human Rec. Analog 100 Units/ML 3 ML Pen SUBCUT SCH (21:00)
[2022-09-24] MEDS: Pantoprazole 40 MG Tab.CR PO SCH (05:41)
[2022-09-24] MEDS: Levothyroxine 150 MCG Tab PO SCH (05:41)
[2022-09-24] MEDS: ceFAZolin 2 GM Vial IVPUSH SCH ×3 (05:43→20:15)
[2022-09-24] MEDS: Sodium Chloride 0.9% 10 ML Syringe FLUSH PRN ×4 (05:48→20:22)
[2022-09-24] MEDS: Insulin Lispro 100 Unit/ML 3 ML KwikPen SUBCUT SCH ×6 (07:37→17:48)
[2022-09-24] MEDS: Hydrochlorothiazide/Lisinopril 12.5-10 MG Tab PO SCH (08:40)
[2022-09-24] MEDS: Aspirin 81 MG Tab.EC PO SCH (08:40)
[2022-09-24] MEDS: Ferrous Sulfate 325 MG Tab PO SCH (08:40)
[2022-09-24] MEDS: Saccharomyces Boulardii (Probiotic) 250 MG Cap PO SCH (08:40)
[2022-09-24] MEDS: Clopidogrel 75 MG Tab PO SCH (08:41)
[2022-09-24] MEDS: amLODIPine 5 MG Tab PO SCH (08:41)
[2022-09-24] MEDS: Simvastatin 40 MG Tab PO SCH (20:26)
[2022-09-24] MEDS: Insulin Glargine,Human Rec. Analog 100 Units/ML 3 ML Pen SUBCUT SCH (21:35)
[2022-09-25] MEDS: Sodium Chloride 0.9% 10 ML Syringe FLUSH PRN ×4 (05:25→12:58)
[2022-09-25] MEDS: ceFAZolin 2 GM Vial IVPUSH SCH ×3 (05:26→21:57)
[2022-09-25] MEDS: Levothyroxine 150 MCG Tab PO SCH (05:38)
[2022-09-25] MEDS: Pantoprazole 40 MG Tab.CR PO SCH (05:38)
[2022-09-25] MEDS: Insulin Lispro 100 Unit/ML 3 ML KwikPen SUBCUT SCH ×6 (07:55→17:37)
[2022-09-25] MEDS: Hydrochlorothiazide/Lisinopril 12.5-10 MG Tab PO SCH (08:00)
[2022-09-25] MEDS: Aspirin 81 MG Tab.EC PO SCH (08:00)
[2022-09-25] MEDS: Clopidogrel 75 MG Tab PO SCH (08:01)
[2022-09-25] MEDS: amLODIPine 5 MG Tab PO SCH (08:01)
[2022-09-25] MEDS: Saccharomyces Boulardii (Probiotic) 250 MG Cap PO SCH (08:02)
[2022-09-25] MEDS: Scopolamine 1.5 MG Transdermal Patch TOP SCH (09:41)
[2022-09-25] MEDS: Simvastatin 40 MG Tab PO SCH (22:01)
[2022-09-25] MEDS ORDERED: Insulin Glargine,Human Rec. Analog 100 Units/ML 3 ML Pen SUBCUT ONE (22:45)
[2022-09-25] MEDS: Insulin Glargine,Human Rec. Analog 100 Units/ML 3 ML Pen SUBCUT SCH (22:50)
[2022-09-26] MEDS: ceFAZolin 2 GM Vial IVPUSH SCH ×3 (04:57→20:03)
[2022-09-26] MEDS: Sodium Chloride 0.9% 10 ML Syringe FLUSH PRN ×4 (04:59→20:03)
[2022-09-26] MEDS: Levothyroxine 150 MCG Tab PO SCH (05:00)
[2022-09-26] MEDS: Pantoprazole 40 MG Tab.CR PO SCH (05:00)
[2022-09-26] MEDS: Insulin Lispro 100 Unit/ML 3 ML KwikPen SUBCUT SCH ×6 (07:44→17:24)
[2022-09-26] MEDS: Ferrous Sulfate 325 MG Tab PO SCH (08:14)
[2022-09-26] MEDS: Aspirin 81 MG Tab.EC PO SCH (08:15)
[2022-09-26] MEDS: Clopidogrel 75 MG Tab PO SCH (08:15)
[2022-09-26] MEDS: amLODIPine 5 MG Tab PO SCH (08:15)
[2022-09-26] MEDS: Hydrochlorothiazide/Lisinopril 12.5-10 MG Tab PO SCH (08:16)
[2022-09-26] MEDS: Saccharomyces Boulardii (Probiotic) 250 MG Cap PO SCH (08:17)
[2022-09-26] MEDS: Insulin Glargine,Human Rec. Analog 100 Units/ML 3 ML Pen SUBCUT SCH (20:04)
[2022-09-26] MEDS: Simvastatin 40 MG Tab PO SCH (20:04)
[2022-09-27] MEDS: Pantoprazole 40 MG Tab.CR PO SCH (05:51)
[2022-09-27] MEDS: Levothyroxine 150 MCG Tab PO SCH (05:51)
[2022-09-27] MEDS: ceFAZolin 2 GM Vial IVPUSH SCH ×3 (05:51→21:04)
[2022-09-27] MEDS: Sodium Chloride 0.9% 10 ML Syringe FLUSH PRN ×3 (05:51→13:10)
[2022-09-27] MEDS: Insulin Lispro 100 Unit/ML 3 ML KwikPen SUBCUT SCH ×6 (07:40→17:32)
[2022-09-27] MEDS: Hydrochlorothiazide/Lisinopril 12.5-10 MG Tab PO SCH (08:10)
[2022-09-27] MEDS: Aspirin 81 MG Tab.EC PO SCH (08:10)
[2022-09-27] MEDS: Clopidogrel 75 MG Tab PO SCH (08:10)
[2022-09-27] MEDS: Saccharomyces Boulardii (Probiotic) 250 MG Cap PO SCH (08:11)
[2022-09-27] MEDS: amLODIPine 5 MG Tab PO SCH (08:11)
[2022-09-27] MEDS: Simvastatin 40 MG Tab PO SCH (20:51)
[2022-09-27] MEDS: Insulin Glargine,Human Rec. Analog 100 Units/ML 3 ML Pen SUBCUT SCH (21:04)
[2022-09-28] MEDS: Sodium Chloride 0.9% 10 ML Syringe FLUSH PRN ×6 (05:34→21:50)
[2022-09-28] MEDS: ceFAZolin 2 GM Vial IVPUSH SCH ×3 (05:35→21:44)
[2022-09-28] MEDS: Pantoprazole 40 MG Tab.CR PO SCH (05:53)
[2022-09-28] MEDS: Levothyroxine 150 MCG Tab PO SCH (05:54)
[2022-09-28 06:52] LABS: BASOPHILS PERCENT AUTO 0.8 % (0.3-3.8); EOSINOPHILS ABSOLUTE AUTO 0.2 x10-3/uL (0.0-0.6); EOSINOPHILS PERCENT AUTO 3.9 % (0.1-6.8); HEMATOCRIT 33.3 % (38.3-50.1); HEMOGLOBIN 11.2 g/dL (12.9-17.7); LYMPHOCYTES ABSOLUTE AUTO 1.9 x10-3/uL (0.5-4.5); LYMPHOCYTES PERCENT AUTO 31.9 % (15.8-45.3); MEAN CORPUSCULAR HEMOGLOBIN 32.5 pg (27.0-33.3); MEAN CORPUSCULAR HGB CONC 33.6 g/dL (28.7-35.3); MEAN CORPUSCULAR VOLUME 96.7 fL (80.8-98.7); MEAN PLATELET VOLUME 8.9 fL (6.7-11.0); MONOCYTES ABSOLUTE AUTO 0.5 x10-3/uL (0.0-1.2); MONOCYTES PERCENT AUTO 9.2 % (5.5-15.2); NEUTROPHILS ABSOLUTE AUTO 3.2 x10-3/uL (1.7-6.9); NEUTROPHILS PERCENT AUTO 54.2 % (40.3-71.8); PLATELET COUNT,PLT 223 x10(3)uL (117-477); RED BLOOD CELL COUNT 3.44 x10(6)uL (3.90-5.90); RED CELL DISTRIBUTION WIDTH 18.9 % (12.4-15.0); WHITE BLOOD CELL COUNT,WBC 5.9 x10-3/uL (3.2-10.1)
[2022-09-28 07:05] LABS: EST CRCL DRUG DOSING (CG) 76.54 mL/min
[2022-09-28 07:41] LABS: SEDIMENTATION RATE MANUAL 17 mm/hr (0-15)
[2022-09-28] MEDS: Insulin Lispro 100 Unit/ML 3 ML KwikPen SUBCUT SCH ×6 (07:56→17:56)
[2022-09-28] MEDS: Ferrous Sulfate 325 MG Tab PO SCH (08:02)
[2022-09-28] MEDS: Saccharomyces Boulardii (Probiotic) 250 MG Cap PO SCH (08:02)
[2022-09-28] MEDS: Clopidogrel 75 MG Tab PO SCH (08:03)
[2022-09-28] MEDS: amLODIPine 5 MG Tab PO SCH (08:03)
[2022-09-28] MEDS: Aspirin 81 MG Tab.EC PO SCH (08:03)
[2022-09-28] MEDS: Hydrochlorothiazide/Lisinopril 12.5-10 MG Tab PO SCH (08:03)
[2022-09-28] MEDS: Remove Patch *SCOPOLAMINE TRDERM SCH (08:34)
[2022-09-28] MEDS: Scopolamine 1.5 MG Transdermal Patch TOP SCH (08:34)
[2022-09-28] MEDS: Simvastatin 40 MG Tab PO SCH (21:45)
[2022-09-28] MEDS: Insulin Glargine,Human Rec. Analog 100 Units/ML 3 ML Pen SUBCUT SCH (23:18)
[2022-09-29] MEDS: Sodium Chloride 0.9% 10 ML Syringe FLUSH PRN ×6 (05:18→20:50)
[2022-09-29] MEDS: ceFAZolin 2 GM Vial IVPUSH SCH ×3 (05:19→20:50)
[2022-09-29] MEDS: Levothyroxine 150 MCG Tab PO SCH (05:24)
[2022-09-29] MEDS: Pantoprazole 40 MG Tab.CR PO SCH (05:24)
[2022-09-29] MEDS: Insulin Lispro 100 Unit/ML 3 ML KwikPen SUBCUT SCH ×7 (05:36→17:30)
[2022-09-29] MEDS: Clopidogrel 75 MG Tab PO SCH (08:12)
[2022-09-29] MEDS: amLODIPine 5 MG Tab PO SCH (08:12)
[2022-09-29] MEDS: Hydrochlorothiazide/Lisinopril 12.5-10 MG Tab PO SCH (08:13)
[2022-09-29] MEDS: Saccharomyces Boulardii (Probiotic) 250 MG Cap PO SCH (08:13)
[2022-09-29] MEDS: Aspirin 81 MG Tab.EC PO SCH (08:13)
[2022-09-29] MEDS ORDERED: Insulin Lispro 100 Unit/ML 3 ML KwikPen SUBCUT STA (12:19)
[2022-09-29] MEDS: Insulin Glargine,Human Rec. Analog 100 Units/ML 3 ML Pen SUBCUT SCH (20:56)
[2022-09-29] MEDS: Simvastatin 40 MG Tab PO SCH (20:58)
[2022-09-30] MEDS: Sodium Chloride 0.9% 10 ML Syringe FLUSH PRN ×5 (04:55→20:48)
[2022-09-30] MEDS: ceFAZolin 2 GM Vial IVPUSH SCH ×3 (04:55→20:47)
[2022-09-30] MEDS: Pantoprazole 40 MG Tab.CR PO SCH (05:05)
[2022-09-30] MEDS: Levothyroxine 150 MCG Tab PO SCH (05:06)
[2022-09-30] MEDS: Insulin Lispro 100 Unit/ML 3 ML KwikPen SUBCUT SCH ×6 (07:53→17:36)
[2022-09-30] MEDS: Ferrous Sulfate 325 MG Tab PO SCH (08:01)
[2022-09-30] MEDS: Saccharomyces Boulardii (Probiotic) 250 MG Cap PO SCH (08:01)
[2022-09-30] MEDS: Aspirin 81 MG Tab.EC PO SCH (08:02)
[2022-09-30] MEDS: Hydrochlorothiazide/Lisinopril 12.5-10 MG Tab PO SCH (08:02)
[2022-09-30] MEDS: amLODIPine 5 MG Tab PO SCH (08:03)
[2022-09-30] MEDS: Clopidogrel 75 MG Tab PO SCH (08:04)
[2022-09-30] MEDS ORDERED: Insulin Lispro 100 Unit/ML 3 ML KwikPen SUBCUT ONE (11:44)
[2022-09-30] MEDS: Simvastatin 40 MG Tab PO SCH (20:57)
[2022-09-30] MEDS: Insulin Glargine,Human Rec. Analog 100 Units/ML 3 ML Pen SUBCUT SCH (20:58)
[2022-10-01] MEDS: Sodium Chloride 0.9% 10 ML Syringe FLUSH PRN ×6 (05:02→22:14)
[2022-10-01] MEDS: ceFAZolin 2 GM Vial IVPUSH SCH ×3 (05:03→21:45)
[2022-10-01] MEDS: Levothyroxine 150 MCG Tab PO SCH (05:11)
[2022-10-01] MEDS: Pantoprazole 40 MG Tab.CR PO SCH (05:11)
[2022-10-01] MEDS: Insulin Lispro 100 Unit/ML 3 ML KwikPen SUBCUT SCH ×6 (07:47→17:32)
[2022-10-01] MEDS: amLODIPine 5 MG Tab PO SCH (08:00)
[2022-10-01] MEDS: Aspirin 81 MG Tab.EC PO SCH (08:00)
[2022-10-01] MEDS: Hydrochlorothiazide/Lisinopril 12.5-10 MG Tab PO SCH (08:00)
[2022-10-01] MEDS: Clopidogrel 75 MG Tab PO SCH (08:00)
[2022-10-01] MEDS: Saccharomyces Boulardii (Probiotic) 250 MG Cap PO SCH (08:00)
[2022-10-01] MEDS: Remove Patch *SCOPOLAMINE TRDERM SCH (09:26)
[2022-10-01] MEDS: Scopolamine 1.5 MG Transdermal Patch TOP SCH (09:27)
[2022-10-01] MEDS ORDERED: Insulin Glargine,Human Rec. Analog 100 Units/ML 3 ML Pen SUBCUT ONE (21:42)
[2022-10-01] MEDS: Insulin Glargine,Human Rec. Analog 100 Units/ML 3 ML Pen SUBCUT SCH (21:43)
[2022-10-01] MEDS: Simvastatin 40 MG Tab PO SCH (22:22)
[2022-10-02] MEDS: ceFAZolin 2 GM Vial IVPUSH SCH ×3 (05:29→21:25)
[2022-10-02] MEDS: Sodium Chloride 0.9% 10 ML Syringe FLUSH PRN ×6 (05:30→21:40)
[2022-10-02] MEDS: Levothyroxine 150 MCG Tab PO SCH (05:41)
[2022-10-02] MEDS: Pantoprazole 40 MG Tab.CR PO SCH (05:42)
[2022-10-02] MEDS: Scopolamine 1.5 MG Transdermal Patch TOP SCH (07:35)
[2022-10-02] MEDS: Insulin Lispro 100 Unit/ML 3 ML KwikPen SUBCUT SCH ×6 (07:48→17:31)
[2022-10-02] MEDS: Ferrous Sulfate 325 MG Tab PO SCH (10:30)
[2022-10-02] MEDS: Saccharomyces Boulardii (Probiotic) 250 MG Cap PO SCH (10:31)
[2022-10-02] MEDS: Aspirin 81 MG Tab.EC PO SCH (10:31)
[2022-10-02] MEDS: Hydrochlorothiazide/Lisinopril 12.5-10 MG Tab PO SCH (10:31)
[2022-10-02] MEDS: amLODIPine 5 MG Tab PO SCH (10:31)
[2022-10-02] MEDS: Clopidogrel 75 MG Tab PO SCH (10:32)
[2022-10-02] MEDS: Insulin Glargine,Human Rec. Analog 100 Units/ML 3 ML Pen SUBCUT SCH (21:24)
[2022-10-02] MEDS: Simvastatin 40 MG Tab PO SCH (21:26)
[2022-10-03] MEDS: ceFAZolin 2 GM Vial IVPUSH SCH ×3 (05:18→21:05)
[2022-10-03] MEDS: Sodium Chloride 0.9% 10 ML Syringe FLUSH PRN ×6 (05:21→21:16)
[2022-10-03] MEDS: Levothyroxine 150 MCG Tab PO SCH (06:44)
[2022-10-03] MEDS: Pantoprazole 40 MG Tab.CR PO SCH (06:44)
[2022-10-03] MEDS: Insulin Lispro 100 Unit/ML 3 ML KwikPen SUBCUT SCH ×6 (07:49→17:27)
[2022-10-03] MEDS: amLODIPine 5 MG Tab PO SCH (08:06)
[2022-10-03] MEDS: Aspirin 81 MG Tab.EC PO SCH (08:06)
[2022-10-03] MEDS: Clopidogrel 75 MG Tab PO SCH (08:06)
[2022-10-03] MEDS: Saccharomyces Boulardii (Probiotic) 250 MG Cap PO SCH (08:06)
[2022-10-03] MEDS: Hydrochlorothiazide/Lisinopril 12.5-10 MG Tab PO SCH (08:06)
[2022-10-03] MEDS: Insulin Glargine,Human Rec. Analog 100 Units/ML 3 ML Pen SUBCUT SCH (21:19)
[2022-10-03] MEDS: Simvastatin 40 MG Tab PO SCH (21:21)
[2022-10-04] MEDS: ceFAZolin 2 GM Vial IVPUSH SCH ×3 (05:13→21:03)
[2022-10-04] MEDS: Sodium Chloride 0.9% 10 ML Syringe FLUSH PRN ×4 (05:14→21:19)
[2022-10-04] MEDS: Pantoprazole 40 MG Tab.CR PO SCH (05:27)
[2022-10-04] MEDS: Levothyroxine 150 MCG Tab PO SCH (05:27)
[2022-10-04] MEDS: Insulin Lispro 100 Unit/ML 3 ML KwikPen SUBCUT SCH ×6 (07:58→17:32)
[2022-10-04] MEDS: Hydrochlorothiazide/Lisinopril 12.5-10 MG Tab PO SCH (08:01)
[2022-10-04] MEDS: amLODIPine 5 MG Tab PO SCH (08:01)
[2022-10-04] MEDS: Clopidogrel 75 MG Tab PO SCH (08:02)
[2022-10-04] MEDS: Aspirin 81 MG Tab.EC PO SCH (08:02)
[2022-10-04] MEDS: Saccharomyces Boulardii (Probiotic) 250 MG Cap PO SCH (08:03)
[2022-10-04] MEDS: Ferrous Sulfate 325 MG Tab PO SCH (08:03)
[2022-10-04] MEDS ORDERED: Insulin Glargine,Human Rec. Analog 100 Units/ML 3 ML Pen SUBCUT SCH (21:00)
[2022-10-04] MEDS: Simvastatin 40 MG Tab PO SCH (21:04)
[2022-10-05] MEDS: ceFAZolin 2 GM Vial IVPUSH SCH ×2 (05:22→13:21)
[2022-10-05] MEDS: Sodium Chloride 0.9% 10 ML Syringe FLUSH PRN ×3 (05:26→13:23)
[2022-10-05] MEDS: Pantoprazole 40 MG Tab.CR PO SCH (05:33)
[2022-10-05] MEDS: Levothyroxine 150 MCG Tab PO SCH (05:33)
[2022-10-05 06:54] LABS: EOSINOPHILS ABSOLUTE AUTO 0.1 x10-3/uL (0.0-0.6); LYMPHOCYTES ABSOLUTE AUTO 1.6 x10-3/uL (0.5-4.5); MEAN CORPUSCULAR VOLUME 98.1 fL (80.8-98.7); MEAN PLATELET VOLUME 9.3 fL (6.7-11.0); NEUTROPHILS ABSOLUTE AUTO 2.7 x10-3/uL (1.7-6.9); WHITE BLOOD CELL COUNT,WBC 4.9 x10-3/uL (3.2-10.1)
[2022-10-05 06:56] LABS: CREATININE 1.1 mg/dL (0.70-1.30); EST CRCL DRUG DOSING (CG) 69.72 mL/min
[2022-10-05 07:02] LABS: BASOPHILS PERCENT AUTO 0.5 % (0.3-3.8); HEMATOCRIT 32.3 % (38.3-50.1); HEMOGLOBIN 10.9 g/dL (12.9-17.7); LYMPHOCYTES PERCENT AUTO 32.8 % (15.8-45.3); MEAN CORPUSCULAR HGB CONC 33.6 g/dL (28.7-35.3); MONOCYTES ABSOLUTE AUTO 0.4 x10-3/uL (0.0-1.2); MONOCYTES PERCENT AUTO 9.1 % (5.5-15.2); NEUTROPHILS PERCENT AUTO 54.6 % (40.3-71.8); PLATELET COUNT,PLT 180 x10(3)uL (117-477); RED BLOOD CELL COUNT 3.29 x10(6)uL (3.90-5.90); RED CELL DISTRIBUTION WIDTH 18.4 % (12.4-15.0)
[2022-10-05 07:28] LABS: SEDIMENTATION RATE MANUAL 12 mm/hr (0-15)
[2022-10-05] MEDS: Insulin Lispro 100 Unit/ML 3 ML KwikPen SUBCUT SCH ×4 (07:45→11:36)
[2022-10-05] MEDS: Saccharomyces Boulardii (Probiotic) 250 MG Cap PO SCH (08:03)
[2022-10-05] MEDS: Hydrochlorothiazide/Lisinopril 12.5-10 MG Tab PO SCH (08:04)
[2022-10-05] MEDS: Aspirin 81 MG Tab.EC PO SCH (08:04)
[2022-10-05] MEDS: amLODIPine 5 MG Tab PO SCH (08:06)
[2022-10-05] MEDS: Clopidogrel 75 MG Tab PO SCH (08:06)
[2022-10-05] MEDS ORDERED: Remove Patch *SCOPOLAMINE TRDERM SCH (08:30)
[2022-10-05] MEDS ORDERED: Scopolamine 1.5 MG Transdermal Patch TOP SCH (08:30)
== END 2022-10-05 14:06 | disposition home or self-care (01) | DRG 560 ==
LOC: FB.MS 09-11 11:34
PROVIDERS: ADMIT Student in an Organized Health Care Education/Training Program; ATTEND Family Medicine
DX: Z47.81 Encounter for orthopedic aftercare following surgical amputation (principal); I50.32 Chronic diastolic (congestive) heart failure; M86.8X8 Other osteomyelitis, other site; I25.10 Atherosclerotic heart disease of native coronary artery without angina pectoris; E10.69 Type 1 diabetes mellitus with other specified complication; I11.0 Hypertensive heart disease with heart failure; E78.2 Mixed hyperlipidemia; E03.9 Hypothyroidism, unspecified; F17.210 Nicotine dependence, cigarettes, uncomplicated; E10.40 Type 1 diabetes mellitus with diabetic neuropathy, unspecified; Z79.82 Long term (current) use of aspirin; Z79.899 Other long term (current) drug therapy; Z79.4 Long term (current) use of insulin; Z79.890 Hormone replacement therapy; Z86.010 Personal history of colon polyps; Z98.49 Cataract extraction status, unspecified eye; Z98.890 Other specified postprocedural states
CPT/HCPCS: 36415; 80048; 80053; 82565; 82947; 83735; 84443; 84450; 84484; 85025; 85651; 86140; 93005; 97165-GO; 99305; 99308; 99309; 99310; 99315; A9270-GY; C9113; J0690; J0780; J1642; J1815; J1815-GY; J3475; J3490; Q0162

== ENCOUNTER 2023-02-03 10:15 | Day surgery (SDC) | payer MEDICARE, OTHER ==
[2023-02-03] MEDS ORDERED: Ketorolac 30 MG/ML SDV IVPUSH ONE (10:16)
[2023-02-03] MEDS ORDERED: diphenhydrAMINE 50 MG/ML SDV IVPUSH ONE (10:16)
[2023-02-03] MEDS ORDERED: Lactated Ringers 1,000 ML IV ONE (10:16)
[2023-02-03] MEDS ORDERED: Dexamethasone 4 MG/ML 5 ML MDV IVPUSH ONE (10:16)
[2023-02-03] MEDS ORDERED: Propofol 200 MG/20 ML SDV IV ONE (10:16)
[2023-02-03] MEDS ORDERED: Neostigmine Methylsulfate 10 MG/10 ML MDV IVPUSH ONE (10:16)
[2023-02-03] MEDS ORDERED: Midazolam 1 MG/ML 2 ML SDV IV ONE (10:16)
[2023-02-03] MEDS ORDERED: fentaNYL 100 MCG/2 ML SDV IV ONE (10:16)
[2023-02-03] MEDS ORDERED: Rocuronium 100 MG/10 ML MDV IV ONE (10:16)
[2023-02-03] MEDS ORDERED: Labetalol 100 MG/20 ML MDV IV ONE (10:16)
[2023-02-03] MEDS ORDERED: Sodium Chloride 0.9% 10 ML Syringe FLUSH PRN (10:30)
[2023-02-03] MEDS ORDERED: Lactated Ringers 1,000 ML IV SCH (10:30)
[2023-02-03] MEDS ORDERED: ceFAZolin 2 GM Vial IVPUSH ONE (12:00)
[2023-02-03] MEDS ORDERED: ceFAZolin 2 GM in Sodium Chloride 0.9% 100 ML IV ONE (12:00)
[2023-02-03] MEDS ORDERED: Bupivacaine 0.5%/EPINEPHrine 1:200,000 10 ML SDV INJECT ONE (12:56)
== END 2023-02-03 16:20 | disposition home or self-care (01) ==
LOC: FB.SDS 10:15
PROVIDERS: ATTEND Surgery
DX: K80.10 Calculus of gallbladder with chronic cholecystitis without obstruction (principal); E10.51 Type 1 diabetes mellitus with diabetic peripheral angiopathy without gangrene; E10.42 Type 1 diabetes mellitus with diabetic polyneuropathy; I11.0 Hypertensive heart disease with heart failure; I50.9 Heart failure, unspecified; E03.9 Hypothyroidism, unspecified; E78.5 Hyperlipidemia, unspecified; Z87.891 Personal history of nicotine dependence; Z89.422 Acquired absence of other left toe(s); Z79.890 Hormone replacement therapy; Z79.82 Long term (current) use of aspirin; Z79.899 Other long term (current) drug therapy
CPT/HCPCS: 88304; 94150; J0690; J1100; J1200; J1885; J2250; J2704; J2710; J3010; J3490; J7120